=== PATIENT | female | born 2000 | race Two or more races ===

== ENCOUNTER 2023-04-19 08:10 | Emergency (ER) | payer OTHER ==
[2023-04-19 08:46] VITALS: RESP 19; TEMP 98; BMI 18.2
[2023-04-19] MEDS ORDERED: SODIUM CHLORIDE 0.9% 500 ML INFUS.BAG IV ONE (09:08)
[2023-04-19 09:33] VITALS: BP 118/76
[2023-04-19 09:44] LABS: BASO % 0.8 % (0-2.0); EOS % 1.5 % (0-4.5); HEMATOCRIT 38.7 % (32.4-45.2); HEMOGLOBIN 13.4 GM/dL (10.7-15.3); LYMPH % 32.1 % (8-40); MCH 29.1 pg (25.7-33.7); MCHC 34.7 g/dl (32.0-36.0); MEAN CELL VOLUME 83.9 fl (80-96); MEAN PLT VOLUME 7.4 fl (7.5-11.1); MONO % 8.8 % (3.8-10.2); NEUT % 56.8 % (42.8-82.8); PLATELET COUNT 375 10^3/uL (134-434); RBC 4.61 M/mm3 (3.60-5.2); RDW 14.1 % (11.6-15.6); WHITE BLOOD COUNT 6.6 K/mm3 (4.0-10.0)
[2023-04-19 09:48] LABS: INR 1.08 (0.83-1.09); PROTHROMBIN TIME (PATIENT) 12.5 SEC (9.7-13.0)
[2023-04-19 09:51] LABS: ACTIVATED PTT 31.2 SECONDS (25.2-36.5); POTASSIUM 4.3 mmol/L (3.5-5.1)
[2023-04-19 09:53] LABS: ALBUMIN 4.1 g/dl (3.4-5.0); BLOOD UREA NITROGEN 8.7 mg/dL (7-18); CALCIUM 9.1 mg/dL (8.5-10.1); MAGNESIUM 2.3 mg/dL (1.8-2.4)
[2023-04-19 09:56] LABS: CREATININE 0.7 mg/dL (0.55-1.3)
[2023-04-19 09:58] LABS: BILIRUBIN,TOTAL 0.3 mg/dL (0.2-1); TOT PROT 8.3 g/dl (6.4-8.2)
[2023-04-19 11:18] LABS: EPI CELLS >36 /uL (0-25.1); HYALINE CASTS 0 /uL (0-3.1); PH,URINE 6.5 (5.0-8.0); URINE APPEARANCE CLEAR; URINE BACTERIA 1985 /uL (0-1359); URINE BILIRUBIN NEGATIVE (NEGATIVE); URINE COLOR YELLOW; URINE GLUCOSE (UA) NEGATIVE (NEGATIVE); URINE KETONE TRACE (NEGATIVE); URINE LEUK ESTERASE TRACE (NEGATIVE); URINE NITRITE NEGATIVE (NEGATIVE); URINE PROTEIN 1+ (NEGATIVE); URINE RBC 42 /uL (0-23.9); URINE WBC 36 /uL (0-25.8)
[2023-04-19 12:18] LABS: EPI CELLS >36 /uL (0-25.1); HYALINE CASTS 3 /uL (0-3.1); PH,URINE 5.5 (5.0-8.0); URINE APPEARANCE TURBID; URINE BACTERIA 1111 /uL (0-1359); URINE BILIRUBIN NEGATIVE (NEGATIVE); URINE COLOR RED; URINE GLUCOSE (UA) NEGATIVE (NEGATIVE); URINE KETONE NEGATIVE (NEGATIVE); URINE LEUK ESTERASE 1+ (NEGATIVE); URINE NITRITE NEGATIVE (NEGATIVE); URINE PROTEIN 2+ (NEGATIVE); URINE RBC 21 /uL (0-23.9); URINE WBC 192 /uL (0-25.8)
[2023-04-19 12:25] VITALS: PULSE 90
== END 2023-04-19 12:37 | disposition home or self-care (01) ==
LOC: JER 08:10
DX: R53.1 Weakness (principal); R42 Dizziness and giddiness; R55 Syncope and collapse; H53.10 Unspecified subjective visual disturbances; R23.2 Flushing; Z20.822 Contact with and (suspected) exposure to COVID-19
CPT/HCPCS: 0241U-QW; 36415; 80053; 81003; 83735; 84703; 85025; 85610; 85730; 87086; 93005; 93010; 99284-25

== ENCOUNTER 2023-04-23 20:44 | Emergency (ER) | payer OTHER ==
[2023-04-23 20:53] VITALS: BMI 18.2
[2023-04-23] MEDS ORDERED: LACTATED RINGERS SOLUTION 1000 ML INFUS.BAG IV ONE (23:16)
[2023-04-24 00:29] LABS: BASO % 0.5 % (0-2.0); EOS % 1.7 % (0-4.5); HEMOGLOBIN 13.3 GM/dL (10.7-15.3); MCH 28.2 pg (25.7-33.7); MCHC 33.3 g/dl (32.0-36.0); MEAN CELL VOLUME 84.6 fl (80-96); MEAN PLT VOLUME 7.8 fl (7.5-11.1); MONO % 8.7 % (3.8-10.2); NEUT % 54.1 % (42.8-82.8); PLATELET COUNT 360 10^3/uL (134-434); RBC 4.73 M/mm3 (3.60-5.2); RDW 14.1 % (11.6-15.6)
[2023-04-24 00:44] LABS: POTASSIUM 3.7 mmol/L (3.5-5.1)
[2023-04-24 00:46] LABS: CALCIUM 9.4 mg/dL (8.5-10.1)
[2023-04-24 00:47] LABS: BLOOD UREA NITROGEN 14.3 mg/dL (7-18)
[2023-04-24 00:50] LABS: CREATININE 0.6 mg/dL (0.55-1.3)
[2023-04-24 00:51] LABS: BILIRUBIN,TOTAL 0.2 mg/dL (0.2-1); TOT PROT 8.1 g/dl (6.4-8.2)
[2023-04-24 01:23] LABS: MAGNESIUM 2.2 mg/dL (1.8-2.4)
[2023-04-24 01:45] LABS: URINE APPEARANCE CLEAR; URINE BILIRUBIN NEGATIVE (NEGATIVE); URINE COLOR YELLOW; URINE GLUCOSE (UA) NEGATIVE (NEGATIVE); URINE KETONE NEGATIVE (NEGATIVE); URINE LEUK ESTERASE NEGATIVE (NEGATIVE); URINE NITRITE NEGATIVE (NEGATIVE); URINE PROTEIN NEGATIVE (NEGATIVE); URINE UROBILINOGEN 0.2 mg/dL (0.2-1.0)
[2023-04-24 02:45] VITALS: BP 107/58; PULSE 87; RESP 12; TEMP 97.6
[2023-04-24] MEDS ORDERED: ONDANSETRON 4 MG/2 ML VIAL IVPUSH ONE (04:37)
[2023-04-24] MEDS ORDERED: ONDANSETRON 4 MG/2 ML VIAL ONE (04:59)
[2023-04-24 08:37] LABS: INR 1.12 (0.83-1.09)
[2023-04-24 08:39] LABS: ACTIVATED PTT 31.7 SECONDS (25.2-36.5)
== END 2023-04-24 05:09 | disposition home or self-care (01) ==
LOC: JER 20:44
DX: R53.1 Weakness (principal); R42 Dizziness and giddiness; H53.8 Other visual disturbances; R07.89 Other chest pain; R35.0 Frequency of micturition; K52.9 Noninfective gastroenteritis and colitis, unspecified
CPT/HCPCS: 36415; 70450-TC; 71046-TC-FY; 74176-TC; 80053; 81003; 83735; 84443; 84484; 84703; 85025; 85610; 85730; 87086; 93005; 93010; 99284-25